=== PATIENT | female | born 1950 | race Caucasian/White ===

== ENCOUNTER 2022-07-11 09:49 | Day surgery (SDC) | payer MEDICARE | END 2022-07-11 22:38 | disposition home or self-care (01) | LOC: WOUND 09:49 | DX: L97.512 Non-pressure chronic ulcer of other part of right foot with fat layer exposed (principal); I87.2 Venous insufficiency (chronic) (peripheral); S81.801S Unspecified open wound, right lower leg, sequela; I10 Essential (primary) hypertension; I83.009 Varicose veins of unspecified lower extremity with ulcer of unspecified site | CPT/HCPCS: A9270; G0463 ==

== ENCOUNTER 2022-07-21 02:45 | Day surgery (SDC) | payer MEDICARE | END 2022-07-21 22:35 | disposition home or self-care (01) | LOC: WOUND 02:45 | DX: L97.812 Non-pressure chronic ulcer of other part of right lower leg with fat layer exposed (principal); S81.801S Unspecified open wound, right lower leg, sequela; I10 Essential (primary) hypertension; I83.009 Varicose veins of unspecified lower extremity with ulcer of unspecified site; I87.2 Venous insufficiency (chronic) (peripheral); I73.9 Peripheral vascular disease, unspecified | CPT/HCPCS: A9270 ==

== ENCOUNTER 2022-07-28 01:45 | Day surgery (SDC) | payer MEDICARE | END 2022-07-28 22:34 | disposition home or self-care (01) | LOC: WOUND 01:45 | DX: I83.009 Varicose veins of unspecified lower extremity with ulcer of unspecified site (principal); S81.801S Unspecified open wound, right lower leg, sequela; I10 Essential (primary) hypertension; I87.2 Venous insufficiency (chronic) (peripheral); I73.9 Peripheral vascular disease, unspecified | CPT/HCPCS: A9270; G0463 ==

== ENCOUNTER 2022-08-05 02:16 | Day surgery (SDC) | payer MEDICARE | END 2022-08-05 22:43 | disposition home or self-care (01) | LOC: WOUND 02:16 | DX: L97.812 Non-pressure chronic ulcer of other part of right lower leg with fat layer exposed (principal); I87.2 Venous insufficiency (chronic) (peripheral); S81.801S Unspecified open wound, right lower leg, sequela; I10 Essential (primary) hypertension; I83.009 Varicose veins of unspecified lower extremity with ulcer of unspecified site; I73.9 Peripheral vascular disease, unspecified | CPT/HCPCS: A9270; G0463 ==

== ENCOUNTER 2022-08-12 00:03 | Day surgery (SDC) | payer MEDICARE ==
[2022-08-15] MEDS ORDERED: MERIBIN5 MG PO (14:09)
[2022-08-15] MEDS ORDERED: CHLO25B PO (14:10)
[2022-08-15] MEDS ORDERED: IBUP200 PO (14:11)
[2022-08-15] MEDS ORDERED: Prinivil10 MG PO (14:11)
[2022-08-15] MEDS ORDERED: LEVSOD75 PO (14:11)
[2022-08-15] MEDS ORDERED: BIOTIN PO (14:12)
[2022-08-15] MEDS ORDERED: LESCOL PO (14:13)
== END 2022-08-12 22:56 | disposition home or self-care (01) ==
LOC: WOUND 00:03
DX: L97.812 Non-pressure chronic ulcer of other part of right lower leg with fat layer exposed (principal)
CPT/HCPCS: G0463

== ENCOUNTER 2022-08-16 07:13 | Day surgery (SDC) | payer MEDICARE ==
[2022-08-16] VITALS (12 sets, daily range): BP systolic 121–166; BP diastolic 56–112
[~2022-08-16] VITALS: Ht 160 cm; Wt 88.0 kg
[~2022-08-16 07:13] MED LIST: BIOTIN PO; CHLO25B PO; IBUP200 PO; LESCOL PO; LEVSOD75 PO; MERIBIN5 MG PO; Prinivil10 MG PO
--- NOTE | 2022-08-16 12:51 | NUR ---
PT AND S/O VERBALIZES UNDERSTANDING WRITTEN INSTRUCTIONS. DENIES QUESTIONS OR CONCERNS. PT AMBULATES TO RESTROOM AND BACK WITHOUT DIFF. L femoral site REMAINS CLEAR. NO BLEEDING OR HEMATOMA. VSS. NADN. PT IV DC'D. CATH INTACT. PRESSURE DSG APPLIED. PT DRESSES SELF WITHOUT DIFF. PT DC TO HOME VIA S/O BY [facility]
== END 2022-08-16 13:00 | disposition home or self-care (01) ==
LOC: MHTC 07:13
DX: I70.223 Atherosclerosis of native arteries of extremities with rest pain, bilateral legs (principal); I73.9 Peripheral vascular disease, unspecified; L97.919 Non-pressure chronic ulcer of unspecified part of right lower leg with unspecified severity
CPT/HCPCS: 37225; 37228; 37232; 75625; 75716; 75774; 76937; 85347; 99152; 99153; C1714; C1725; C1760; C1769; C1887; C1894; C2623; J1644; J2250; J3010; J7030; J7050; Q9967

== ENCOUNTER 2022-08-19 00:53 | Day surgery (SDC) | payer MEDICARE | END 2022-08-19 22:51 | disposition home or self-care (01) | LOC: WOUND 00:53 | DX: L97.812 Non-pressure chronic ulcer of other part of right lower leg with fat layer exposed (principal); S81.801S Unspecified open wound, right lower leg, sequela; X58.XXXS Exposure to other specified factors, sequela; I10 Essential (primary) hypertension; I83.009 Varicose veins of unspecified lower extremity with ulcer of unspecified site; I87.2 Venous insufficiency (chronic) (peripheral); I73.9 Peripheral vascular disease, unspecified | CPT/HCPCS: A9270 ==

== ENCOUNTER 2022-08-29 08:46 | Day surgery (SDC) | payer MEDICARE ==
[2022-08-29] MEDS ORDERED: FLUVASTATIN PO (16:41)
[2022-08-30] MEDS ORDERED: MULVITA PO (07:18)
== END 2022-08-29 22:34 | disposition home or self-care (01) ==
LOC: WOUND 08:46
DX: L97.822 Non-pressure chronic ulcer of other part of left lower leg with fat layer exposed (principal); S81.801S Unspecified open wound, right lower leg, sequela; X58.XXXS Exposure to other specified factors, sequela; I83.009 Varicose veins of unspecified lower extremity with ulcer of unspecified site; I87.2 Venous insufficiency (chronic) (peripheral); I73.9 Peripheral vascular disease, unspecified; I10 Essential (primary) hypertension
CPT/HCPCS: A9270

== ENCOUNTER 2022-08-30 07:02 | Day surgery (SDC) | payer MEDICARE ==
[2022-08-30] VITALS (10 sets, daily range): BP systolic 99–150; BP diastolic 48–62
[~2022-08-30] VITALS: Ht 160 cm; Wt 88.0 kg
[~2022-08-30 07:02] MED LIST changes: +FLUVASTATIN PO
[2022-08-30] MEDS ORDERED: MULVITA PO (07:18)
--- NOTE | 2022-08-30 09:00 | NUR ---
PATIENT ARRIVED TO [facility]. AWAKENS EASILY AND RESPONDS APPROPRIATELY. RIGHT GROIN SITE SOFT AND NONTENDER DRESSING D&i NO HEMATOMA, NO BLEEDING. DENIES DISCOMFORT.
--- NOTE | 2022-08-30 11:45 | NUR ---
PATIENT AND VERBALIZED UNDERSTANDING OF DISCHARGE INSTRUCTIONS AND PRECAUTIONS. RIGHT GROIN SITE REMAINS SOFT AND NONTENDER, NO HEMATOMA, NO BLEEDING. IV SITE DCED WITH CATHETER INTACT. NO FURTHER QUESTIONS. PATIENT DISCAHRGED VIA WHEEL CHAIR. TO WAITING CAR. DRIVING.
== END 2022-08-30 11:45 | disposition home or self-care (01) ==
LOC: MHTC 07:02
DX: I70.212 Atherosclerosis of native arteries of extremities with intermittent claudication, left leg (principal); I70.238 Atherosclerosis of native arteries of right leg with ulceration of other part of lower leg; L97.819 Non-pressure chronic ulcer of other part of right lower leg with unspecified severity; I10 Essential (primary) hypertension; Z87.891 Personal history of nicotine dependence; Z88.5 Allergy status to narcotic agent; Z88.0 Allergy status to penicillin; Z88.8 Allergy status to other drugs, medicaments and biological substances; Z79.890 Hormone replacement therapy; Z79.899 Other long term (current) drug therapy
CPT/HCPCS: 76937; 99152; 99153; C1760; C1769; C1887; C1894; C2623; J1644; J2250; J3010; J7030; J7050; Q9967

== ENCOUNTER 2022-08-31 03:01 | Day surgery (SDC) | payer MEDICARE ==
[~2022-08-31 03:01] MED LIST changes: +MULVITA PO
== END 2022-08-31 22:35 | disposition home or self-care (01) ==
LOC: WOUND 03:01
DX: S81.801S Unspecified open wound, right lower leg, sequela (principal); X58.XXXS Exposure to other specified factors, sequela; I10 Essential (primary) hypertension; I83.009 Varicose veins of unspecified lower extremity with ulcer of unspecified site; I87.2 Venous insufficiency (chronic) (peripheral); I73.9 Peripheral vascular disease, unspecified; L97.919 Non-pressure chronic ulcer of unspecified part of right lower leg with unspecified severity
CPT/HCPCS: A9270; G0463

== ENCOUNTER 2022-09-05 02:11 | Day surgery (SDC) | payer MEDICARE | END 2022-09-05 22:41 | disposition home or self-care (01) | LOC: WOUND 02:11 | DX: L97.812 Non-pressure chronic ulcer of other part of right lower leg with fat layer exposed (principal); I87.2 Venous insufficiency (chronic) (peripheral); S81.801S Unspecified open wound, right lower leg, sequela; I10 Essential (primary) hypertension; I83.009 Varicose veins of unspecified lower extremity with ulcer of unspecified site; I73.9 Peripheral vascular disease, unspecified | CPT/HCPCS: A9270; G0463 ==

== ENCOUNTER 2022-09-19 01:22 | Day surgery (SDC) | payer MEDICARE | END 2022-09-19 22:45 | disposition home or self-care (01) | LOC: WOUND 01:22 | DX: L97.812 Non-pressure chronic ulcer of other part of right lower leg with fat layer exposed (principal); S81.801S Unspecified open wound, right lower leg, sequela; I10 Essential (primary) hypertension; I83.009 Varicose veins of unspecified lower extremity with ulcer of unspecified site; I87.2 Venous insufficiency (chronic) (peripheral); I73.9 Peripheral vascular disease, unspecified | CPT/HCPCS: A9270; Q4133 ==

== ENCOUNTER 2022-09-28 03:43 | Day surgery (SDC) | payer MEDICARE | END 2022-09-28 22:41 | disposition home or self-care (01) | LOC: WOUND 03:43 | DX: L97.812 Non-pressure chronic ulcer of other part of right lower leg with fat layer exposed (principal); S81.801S Unspecified open wound, right lower leg, sequela; X58.XXXS Exposure to other specified factors, sequela; I10 Essential (primary) hypertension; I83.009 Varicose veins of unspecified lower extremity with ulcer of unspecified site; I87.2 Venous insufficiency (chronic) (peripheral); I73.9 Peripheral vascular disease, unspecified | CPT/HCPCS: A9270; Q4133 ==

== ENCOUNTER 2022-10-05 03:15 | Day surgery (SDC) | payer MEDICARE | END 2022-10-05 22:42 | disposition home or self-care (01) | LOC: WOUND 03:15 | DX: I83.018 Varicose veins of right lower extremity with ulcer other part of lower leg (principal); L97.812 Non-pressure chronic ulcer of other part of right lower leg with fat layer exposed; I87.2 Venous insufficiency (chronic) (peripheral); S81.801S Unspecified open wound, right lower leg, sequela; I10 Essential (primary) hypertension; I83.009 Varicose veins of unspecified lower extremity with ulcer of unspecified site; I73.9 Peripheral vascular disease, unspecified | CPT/HCPCS: A9270; Q4133 ==

== ENCOUNTER → 2022-10-12 | Day surgery (SDC) | payer MEDICARE | LOC: WOUND 03:10 | DX: I87.311 Chronic venous hypertension (idiopathic) with ulcer of right lower extremity (principal); L97.812 Non-pressure chronic ulcer of other part of right lower leg with fat layer exposed; I10 Essential (primary) hypertension; I87.2 Venous insufficiency (chronic) (peripheral); I73.9 Peripheral vascular disease, unspecified | CPT/HCPCS: A9270; Q4133 ==

== ENCOUNTER 2022-11-02 04:33 | Day surgery (SDC) | payer MEDICARE | END 2022-11-02 22:35 | disposition home or self-care (01) | LOC: WOUND 04:33 | DX: I87.311 Chronic venous hypertension (idiopathic) with ulcer of right lower extremity (principal); L97.812 Non-pressure chronic ulcer of other part of right lower leg with fat layer exposed; I10 Essential (primary) hypertension; I87.2 Venous insufficiency (chronic) (peripheral); I73.9 Peripheral vascular disease, unspecified | CPT/HCPCS: A9270; G0463 ==

== ENCOUNTER 2022-11-09 01:57 | Day surgery (SDC) | payer MEDICARE | END 2022-11-09 22:42 | disposition home or self-care (01) | LOC: WOUND 01:57 | DX: I87.311 Chronic venous hypertension (idiopathic) with ulcer of right lower extremity (principal); L97.812 Non-pressure chronic ulcer of other part of right lower leg with fat layer exposed; I10 Essential (primary) hypertension; I87.2 Venous insufficiency (chronic) (peripheral); I73.9 Peripheral vascular disease, unspecified | CPT/HCPCS: A9270; G0463 ==

== ENCOUNTER 2022-11-16 04:06 | Day surgery (SDC) | payer MEDICARE | END 2022-11-16 22:44 | disposition home or self-care (01) | LOC: WOUND 04:06 | DX: Z48.00 Encounter for change or removal of nonsurgical wound dressing (principal); I10 Essential (primary) hypertension | CPT/HCPCS: G0463 ==

== ENCOUNTER 2024-06-12 09:43 | Day surgery (SDC) | payer OTHER ==
[~2024-06-12] VITALS: Ht 160 cm; Wt 87.3 kg
[~2024-06-12 09:43] MED LIST changes: +Balanced Salt Epinephrine Irrigation Solution 500 mL IR SCH; +Diazepam 2 MG Tab PO PRN; +Lidocaine HCl/Pf 1% 5 ML VIAL XX SCH; +Moxifloxacin HCL 0.5 MG/0.1 ML 0.4MLSYR LEFTEYE SCH; +Ondansetron 4 MG SoluTab MM PRN; +PHENYLEPHRINE\\TROPICAMIDE\\TETRACAINE OPHTHALMIC DILATING SOLN LEFTEYE PRN; +Povidone-Iodine 450 DROP/30 ML Solution LEFTEYE SCH; +Povidone-Iodine 450 DROP/30 ML Solution ONE; +Tetracaine HCl/Pf 0.5% Opth Soln 4 ml ONE; +diazePAM 2 MG,diazePAM 5 MG PO SCH
[2024-06-12] MEDS ORDERED: Diazepam 2 MG Tab ONE (09:54)
[2024-06-12] MEDS ORDERED: Diazepam 5 MG Tab ONE (09:54)
--- NOTE | 2024-06-12 10:23 | NUR ---
06/12/24 1023 Janeth Rodriguez PT RATES ANXIETY 0/10 UPON ARRIVAL AND NOW AT 1023 0/10. WARM BLANKETS PROVIDED
[2024-06-12 11:09] VITALS: BP 149/62
== END 2024-06-12 11:28 | disposition home or self-care (01) ==
LOC: ORSCSDS 09:43
PROVIDERS: Student in an Organized Health Care Education/Training Program
PROC: 08RK3JZ Replacement of Left Lens with Synthetic Substitute, Percutaneous Approach (ICD-10-PCS; principal; 2024-06-12 11:00)
DX: H25.813 Combined forms of age-related cataract, bilateral (principal); H25.12 Age-related nuclear cataract, left eye; I10 Essential (primary) hypertension; Z87.891 Personal history of nicotine dependence; Z79.82 Long term (current) use of aspirin; Z79.899 Other long term (current) drug therapy
CPT/HCPCS: A9270; V2632

== ENCOUNTER 2024-06-26 09:24 | Day surgery (SDC) | payer OTHER ==
[~2024-06-26] VITALS: Ht 160 cm; Wt 87.9 kg
[~2024-06-26 09:24] MED LIST changes: -Diazepam 2 MG Tab PO PRN; +Diazepam 5 MG Tab PO PRN; +Diazepam 5 MG Tab PO SCH; +Lidocaine HCl/Pf 1% 5 ML VIAL ONE; -Moxifloxacin HCL 0.5 MG/0.1 ML 0.4MLSYR LEFTEYE SCH; +Moxifloxacin HCL 0.5 MG/0.1 ML 0.4MLSYR RIGHTEYE SCH; -PHENYLEPHRINE\\TROPICAMIDE\\TETRACAINE OPHTHALMIC DILATING SOLN LEFTEYE PRN; +PHENYLEPHRINE\\TROPICAMIDE\\TETRACAINE OPHTHALMIC DILATING SOLN RIGHTEYE PRN; -Povidone-Iodine 450 DROP/30 ML Solution LEFTEYE SCH; +Povidone-Iodine 450 DROP/30 ML Solution RIGHTEYE SCH; -diazePAM 2 MG,diazePAM 5 MG PO SCH
[2024-06-26] MEDS ORDERED: Aspir 8181 MG PO (09:56)
--- NOTE | 2024-06-26 10:01 | NUR ---
06/26/24 1001 Laura Corley IN AT 0951 ARTUR IN AT 0952 CALL LIGHT AT BEDSIDE
[2024-06-26] MEDS ORDERED: FentaNYL Citrate 50 MCG/ML 2 ML Injection ONE (10:25)
[2024-06-26] MEDS ORDERED: Midazolam HCl 1MG / ML 2ML Vial ONE (10:25)
[2024-06-26 11:06] VITALS: BP 127/59
== END 2024-06-26 11:15 | disposition home or self-care (01) ==
LOC: ORSCSDS 09:24
PROVIDERS: Student in an Organized Health Care Education/Training Program
PROC: 08RJ3JZ Replacement of Right Lens with Synthetic Substitute, Percutaneous Approach (ICD-10-PCS; principal; 2024-06-26 11:00)
DX: H25.811 Combined forms of age-related cataract, right eye (principal); Z96.1 Presence of intraocular lens; I10 Essential (primary) hypertension; K21.9 Gastro-esophageal reflux disease without esophagitis; E07.9 Disorder of thyroid, unspecified; I73.9 Peripheral vascular disease, unspecified; Z79.82 Long term (current) use of aspirin; Z79.899 Other long term (current) drug therapy
CPT/HCPCS: J2003; J2250; J3010; V2632